=== PATIENT | male | born 1980 | race Caucasian/White ===

== ENCOUNTER 2017-12-07 22:12 | Emergency (ER) | payer OTHER ==
[2017-12-07 22:29] VITALS: BMI 25.9
[2017-12-07] MEDS ORDERED: SODIUM CHLORIDE 1,000 ML IV STA (23:22)
--- NOTE | 2017-12-07 23:22 | PDOC ---
History of Present Illness - General History Source: Patient Exam Limitations: No Limitations - History of Present Illness Initial Comments: 12/07/17 23:42 The patient is a 37 year old male, with a significant past medical history of kidney stones, who presents to the emergency department complaining of chest pain and neck pain s/p consuming Marijuana earlier this evening. The patient reports he has been feeling increasingly anxious after smoking Marijuana today. He reports associated chest pain, which he describes as a burning pressure radiating into his neck and back. He reports associated palpitations, but denies any diaphoresis, shortness of breath, or lower extremity edema. Patient reports he has had several weeks of neck and back pain, but his symptoms are worse today. Patient states he has used Marijuana in the past and never experienced these symptoms. He denies any fever, chills, headache, or dizziness. He denies any abdominal pain, nausea, vomiting, diarrhea, or constipation. He denies any dysuria, hematuria, frequency, or urgency. He denies any recent travel or sick contacts. Allergies: Levofloxacin Past Surgical History: None reported Social History: Marijuana use. Non smoker. No ETOH use. <Wallace Coto - Last Filed: 12/07/17 23:42> <Mounika Watson - Last Filed: 12/08/17 01:43> - General Chief Complaint: Psychiatric Stated Complaint: BACK PAIN Time Seen by Provider: 12/07/17 23:11 Past History <Wallace Coto - Last Filed: 12/07/17 23:42> - Past Medical History COPD: No Kidney Stones: Yes - Suicide/Smoking/Psychosocial Hx Smoking History: Never smoked Have you smoked in the past 12 months: No Information on smoking cessation initiated: No Hx Alcohol Use: No Drug/Substance Use Hx: Yes (THC) Substance Use Type: Marijuana <Mounika Watson - Last Filed: 12/08/17 01:43> - Past Medical History Allergies/Adverse Reactions: Allergies Allergy/AdvReac Type Severity Reaction Status Date / Time levofloxacin [From Levaquin] Allergy Verified 12/08/17 00:18 shrimp Allergy Verified 12/08/17 00:19 Home Medications: Ambulatory Orders NK [No Known Home Medication] 12/08/17 Review of Systems - Review of Systems Able to Perform ROS?: Yes Comments:: 12/07/17 23:42 GENERAL/CONSTITUTIONAL: No fever or chills. No weakness. HEAD, EYES, EARS, NOSE AND THROAT: No change in vision. No ear pain or discharge. No sore throat. CARDIOVASCULAR: Yes chest pain. No shortness of breath. RESPIRATORY: No cough, wheezing, or hemoptysis. GASTROINTESTINAL: No nausea, vomiting, diarrhea or constipation. GENITOURINARY: No dysuria, frequency, or change in urination. MUSCULOSKELETAL: Yes neck and back pain. No joint or muscle swelling or pain. SKIN: No rash NEUROLOGIC: No headache, vertigo, loss of consciousness, or change in strength/ sensation. ENDOCRINE: No increased thirst. No abnormal weight change. HEMATOLOGIC/LYMPHATIC: No anemia, easy bleeding, or history of blood clots. ALLERGIC/IMMUNOLOGIC: No hives or skin allergy. PSYCH: Anxious. No suicidal or homicidal ideations. <Wallace Coto - Last Filed: 12/07/17 23:42> *Physical Exam - Vital Signs Last Vital Signs Temp Pulse Resp BP Pulse Ox 98.4 F 116 H 24 174/100 100 12/07/17 22:23 12/07/17 22:23 12/07/17 22:23 12/07/17 22:23 12/07/17 22:23 - Physical Exam Comments: 12/07/17 23:42 GENERAL: Awake, alert, and fully oriented, in no acute distress HEAD: No signs of trauma EYES: PERRLA, EOMI, sclera anicteric, conjunctiva clear ENT: Auricles normal inspection, hearing grossly normal, nares patent, oropharynx clear without exudates. Moist mucosa NECK: Normal ROM, supple, no lymphadenopathy, JVD, or masses LUNGS: Breath sounds equal, clear to auscultation bilaterally. No wheezes, and no crackles HEART: Tachycardic. Regular rhythm, normal S1 and S2, no murmurs, rubs or gallops ABDOMEN: Soft, nontender, normoactive bowel sounds. No guarding, no rebound. No masses EXTREMITIES: Normal range of motion, no edema. No clubbing or cyanosis. No cords, erythema, or tenderness NEUROLOGICAL: Cranial nerves II through XII grossly intact. Normal speech, normal gait SKIN: Warm, Dry, normal turgor, no rashes or lesions noted. <Wallace Coto - Last Filed: 12/07/17 23:42> - Vital Signs Last Vital Signs Temp Pulse Resp BP Pulse Ox 98.4 F 116 H 24 174/100 100 12/07/17 22:23 12/07/17 22:23 12/07/17 22:23 12/07/17 22:23 12/07/17 22:23 <Mounika Watson - Last Filed: 12/08/17 01:43> ED Treatment Course - LABORATORY CBC & Chemistry Diagram: 12/07/17 23:41 12/07/17 23:41 <Mounika Watson - Last Filed: 12/08/17 01:43> *DC/Admit/Observation/Transfer - Attestations Scribe Attestion: 12/07/17 23:43 Documentation prepared by Wallace Coto, acting as medical practice assistant for Mounika Watson MD. <Wallace Coto - Last Filed: 12/07/17 23:42> - Discharge Dispostion Admit: No <Mounika Watson - Last Filed: 12/08/17 01:43> Diagnosis at time of Disposition: Palpitations - Discharge Dispostion Disposition: HOME Condition at time of disposition: Stable
[2017-12-08 00:03] LABS: BASO % 0.4 % (0-2.0); EOS % 0.3 % (0-4.5); HEMATOCRIT 43.9 % (35.4-49); HEMOGLOBIN 15.3 GM/dL (11.7-16.9); MCH 32.6 pg (25.7-33.7); MCHC 34.8 g/dl (32.0-35.9); MEAN CELL VOLUME 93.6 fl (80-96); MEAN PLT VOLUME 9.7 fl (7.5-11.1); MONO % 6.3 % (3.8-10.2); PLATELET COUNT 193 K/MM3 (134-434); RBC 4.69 M/mm3 (4.00-5.60); RDW 12.9 % (11.9-15.9); WHITE BLOOD COUNT 12.6 K/mm3 (4.0-10.0)
[2017-12-08 00:28] LABS: ALBUMIN 3.6 g/dl (3.4-5.0); ANION GAP 7 (8-16); BILIRUBIN,TOTAL 0.4 mg/dL (0.2-1.0); BLOOD UREA NITROGEN 20 mg/dL (7-18); CALCIUM 7.5 mg/dL (8.5-10.1); CHLORIDE 107 mmol/L (98-107); CO2 27 mmol/L (21-32); CREATININE 1.3 mg/dL (0.7-1.3); GLUCOSE,RANDOM 123 mg/dL (74-106); SODIUM 141 mmol/L (136-145); TOT PROT 6.6 g/dl (6.4-8.2)
[2017-12-08 00:38] LABS: ALK PHOS 59 U/L (45-117); SGPT/ALT 58 U/L (12-78)
[2017-12-08 00:40] LABS: SGOT/AST 34 U/L (15-37)
[2017-12-08 00:48] LABS: COCAINE, UR NEGATIVE ng/ml (CUTOFF=300); METHADONE, UR NEGATIVE ng/ml (CUTOFF=300); OPIATES, URI NEGATIVE ng/ml (CUTOFF=300); PHENCYCLIDINE,URINE NEGATIVE ng/ml (CUTOFF=25); URINE AMPHETAMINES NEGATIVE ng/ml (CUTOFF=500); URINE BARBITURATES NEGATIVE ng/ml (CUTOFF=200); URINE BENZODIAZEPINES NEGATIVE ng/ml (CUTOFF=200)
[2017-12-08] MEDS ORDERED: CALCIUM GLUCONATE 10% - 1,000 MG/10 ML VIAL IVPB ONE (00:48)
[2017-12-08] MEDS ORDERED: CALCIUM GLUCONATE 10% - 1,000 MG/10 ML VIAL ONE (00:55)
[2017-12-08 02:07] VITALS: BP 134/78; PULSE 89; TEMP 99
--- NOTE | 2017-12-09 11:39 | EKG ---
Test Reason : Blood Pressure : / mmHG Vent. Rate : 098 BPM Atrial Rate : 098 BPM P-R Int : 148 ms QRS Dur : 094 ms QT Int : 338 ms P-R-T Axes : 064 046 033 degrees QTc Int : 431 ms NORMAL SINUS RHYTHM POSSIBLE LEFT ATRIAL ENLARGEMENT INCOMPLETE RIGHT BUNDLE BRANCH BLOCK BORDERLINE ECG NO PREVIOUS ECGS AVAILABLE Confirmed by BOB BLAND MD ([id number]) on 12/09/2017 11:38:48 AM Referred By: Confirmed By:BOB BLAND MD
== END 2017-12-08 02:06 | disposition home or self-care (01) ==
LOC: JER 22:12
PROC: 3E0337Z Introduction of Electrolytic and Water Balance Substance into Peripheral Vein, Percutaneous Approach (ICD-10-PCS; principal; 2017-12-07)
PROC: 3E033GC Introduction of Other Therapeutic Substance into Peripheral Vein, Percutaneous Approach (ICD-10-PCS; 2017-12-07)
DX: R00.2 Palpitations (principal); F12.10 Cannabis abuse, uncomplicated
CPT/HCPCS: 36415; 71046-TC; 80053; 80307; 82550; 84484; 85025; 93005; 93010; 99284-25